=== PATIENT | female | born 1985 | race Caucasian/White ===

== ENCOUNTER → 2016-08-01 | Day surgery (SDC) | payer OTHER ==
[~2016-08-01] MED LIST: ACETAMINOPHEN 325 MG TAB PO PRN; ADDERALL 10 MG TAB PO SCH; ASPIRIN 81 MG CHEWABLE TAB PO SCH; BUPIVACAINE 0.5% 30 ML SDV ONE; FLUTICASONE NASAL 120 SPRAYS/16 GM MDI EACHNARE SCH; HEPARIN 10,000 UNIT/10 ML MDV ONE; ISOPROTERENOL HCL 0.2 MG/ML 5ML AMP ONE; LEVONORGESTREL ETHIN ESTRADIOL PO SCH; LIDOCAINE 1% 30 ML SDV ONE; LURASIDONE HCL 80 MG TAB PO SCH; Lisdexamfetamine Dimesylate [Vyvanse] 50 MG PO SCH; METOCLOPRAMIDE 10 MG/2 ML VIAL ONE; MIDAZOLAM 2 MG/2 ML VIAL ONE; NON-FORMULARY NEW DRUG (Zolpidem Tartrate [Ambien 10 Mg] 10 MG) PO SCH; NS 1,000 ML IV ONE; ONDANSETRON 4 MG/2 ML VIAL ONE; OXYCODONE/APAP 5/325 TAB PO PRN; PANTOPRAZOLE SODIUM 40 MG TAB PO SCH; PHENYLEPHRINE HCL 100 MCG/ML SYR ONE; PROMETHAZINE HCL 25 MG TAB PO PRN; PROPOFOL 200 MG/20 ML VIAL ONE; ROCURONIUM 50 MG/5 ML VIAL ONE; VALSARTAN 80 MG TAB PO SCH; ZOLPIDEM TARTRATE 5 MG TAB PO SCH; fentaNYL 100 MCG/2 ML INJ ONE
--- NOTE | 2016-08-01 07:16 | CPEKG ---
Heart Rate: 100 RR Interval: 600 P-R Interval: 132 QRSD Interval: 82 QT Interval: 352 QTC Interval: 454 P [place]: 57 QRS [place]: 49 T Wave [place]: -10 EKG Severity - BORDERLINE ECG - EKG Impression: SINUS TACHYCARDIA EKG Impression: BORDERLINE T ABNORMALITIES, INFERIOR LEADS Electronically Signed By: Kevan Harris 01-Aug-2016 08:05:07
[2016-08-01 07:33] LABS: % IMMATURE GRANULYOCYTES 0.3 % (0.0-1.1); ABSOLUTE IMMATURE GRANULOCYTES 0.02 10^3/uL (0.00-0.10); ADD DIFF? NO; ADD MORPH? NO; ADD SCAN? NO; ATYPICAL LYMPHOCYTE FLAG 10 (0-99); FRAGMENT RBC FLAG 0 (0-99); HEMATOCRIT 42.7 % (38.0-47.0); HEMOGLOBIN 14.9 g/dL (12.6-16.3); LEFT SHIFT FLG 0 (0-99); LIPEMIA HEMOLYSIS FLAG 90 (0-99); MEAN CELL HEMOGLOBIN 31.9 pg (27.9-34.1); MEAN CELL HEMOGLOBIN CONCENTR. 34.9 g/dL (32.4-36.7); MEAN CELL VOLUME 91.4 fL (81.5-99.8); MEAN PLATELET VOLUME 9.3 fL (8.7-11.7); PLATELET CLUMPS FLAG 0 (0-99); PLATELET COUNT 286 10^3/uL (150-400); RED BLOOD CELL COUNT 4.67 10^6/uL (4.18-5.33); RED CELL DISTRIBUTION WIDTH 12.2 % (11.5-15.2)
[2016-08-01 07:43] LABS: APTT 24.8 SEC (23.0-38.0); INR 0.98 (0.83-1.16); PROTIME(PATIENT) 12.9 SEC (12.0-15.0)
[2016-08-01 07:50] LABS: ANION GAP 14 mEq/L (8-16); CALCIUM 9.5 mg/dL (8.5-10.4); CARBON DIOXIDE 22 mEq/l (22-31); CHLORIDE 106 mEq/L (97-110); CREATININE 0.8 mg/dL (0.6-1.0); GLOMERULAR FILTRATION RATE > 60; GLUCOSE 88 mg/dL (70-100); MAGNESIUM 1.7 mg/dL (1.6-2.3); POTASSIUM 4.1 mEq/L (3.5-5.2); SODIUM 142 mEq/L (134-144)
--- NOTE | 2016-08-01 11:22 | EPPROC ---
Electrophysiology Procedure Note: DIAGNOSTIC ELECTROPHYSIOLOGIC STUDY Procedures performed: 1. Fluoroscopy 2. EP evaluation with RA/RV/LA pace/record, with arrhythmia induction 3. EP evaluation with RA/RV pace record, insert/reposition catheter, with arrhythmia induction 4. Programmed stimulation + pacing after IV drug INDICATION: Atrial tachycardia PROCEDURE: Catheters & Anesthesia: The patient arrived in the Electrophysiology Laboratory in the fasting state. The right clavicular region, right groin, & left groin area were prepped & draped in the usual sterile manner. Anesthesia provided by Dr. Svetlana Fox, last 45 min of procedure done with patient fully awake. Appropriate non-invasive blood pressure, pulse oximetry & end-tidal CO2 monitoring was established. All catheters were placed percutaneously using the modified Seldinger technique , and advanced into position under fluoroscopic guidance. 20 pole catheter was placed along dale terminalis via LFV. One #7 Fijian deflectable octapolar electrode catheter was advanced to the His-bundle position via the left femoral vein (2mm spacing). One #7 Fijian deflectable catheter with 10 pairs of electrodes was placed via the right femoral vein into the coronary sinus. Programmed stimulation was performed from the right atrium, right ventricle and coronary sinus (left atrium). Parahisian pacing demonstrated constant H-A interval with changing V-A intervals and stimulus-A intervals during capture and loss of capture of proximal RBB proving retrograde conduction over AV node. Heparin was administered to keep ACT > 200 seconds. No sustained reentrant tachycardia was induced during programmed stimulation at baseline or during graded doses of isoproterenol up to 4 mcg/min. Nonsustained atrial fibrillation was seen. The catheters were removed. The patient was transferred to the cardiovascular holding area in stable condition. Vascular access sheaths were removed in the holding area. There were no apparent complications. Results: A. Spontaneous Intervals: SCL 740 ms AH 45 ms HV 40 ms B. Antegrade AV corrine function (decremental pacing) FPERP 300 ms WBB CL 290 ms C. Retrograde AV corrine function (decremental pacing) FPERP 290 ms WBB CL 280 ms CONCLUSIONS 1. Normal sinus and AV node function. 2. No evidence of accessory AV pathway presence. 3. No sustained arrhythmias induced. 4. No apparent complications. Patient Problems: Problems Problem Status Diagnosed Supraventricular tachycardia Acute
== END | disposition home or self-care (01) ==
LOC: FCATH 06:54 → UNDOADMOB 07:05 → F2W 07:05
PROVIDERS: ATTEND Internal Medicine Cardiovascular Disease
PROC: 4A023FZ Measurement of Cardiac Rhythm, Percutaneous Approach (ICD-10-PCS; principal; 2016-08-01)
DX: I47.1 Supraventricular tachycardia (principal); F31.9 Bipolar disorder, unspecified
CPT/HCPCS: 93005; 93620; 93621; 93623; C1731; J1644; J2250; J2370; J2405; J2704; J2765; J3010

== ENCOUNTER → 2017-09-11 | Outpatient (CLI) | payer OTHER | LOC: BMCIMAGING 09:58 | PROVIDERS: ATTEND Internal Medicine | DX: R07.1 Chest pain on breathing (principal); R05 Cough ==

== ENCOUNTER → 2017-10-23 | Outpatient (CLI) | payer OTHER | LOC: BMCIMAGING 13:00 | PROVIDERS: ATTEND Internal Medicine Rheumatology | DX: R05 Cough (principal) ==

== ENCOUNTER → 2017-11-22 | Outpatient (CLI) | payer OTHER | LOC: FIMAGING 10:16 | DX: I10 Essential (primary) hypertension (principal); K76.0 Fatty (change of) liver, not elsewhere classified ==